=== PATIENT | female | born 1985 | race African-American/Black ===

== ENCOUNTER 2017-11-10 10:15 | Inpatient (IN) | payer MEDICAID ==
[~2017-11-10] VITALS: Ht 162.6 cm; Wt 76.7 kg
[2017-11-10] MEDS ORDERED: NKM (10:27)
[2017-11-10] MEDS ORDERED: Morphine Sulfate 4mg/ml Inj (IV USE ONLY) IVP ONE ×3 (10:45→15:15)
[2017-11-10] MEDS ORDERED: Isovue-300 100ml vial INJ PRN (10:45)
[2017-11-10 11:14] LABS: HEMATOCRIT 42.9 % (37.0-47.0); HEMOGLOBIN 14.1 G/DL (12.0-16.0); MEAN CORPUSCULAR VOLUME 87 FL (80-99); RED BLOOD COUNT 4.95 M/UL (4.20-5.40); RED CELL DISTRIBUTION WIDTH 11.6 % (11.6-14.8); WHITE BLOOD COUNT 7.5 K/UL (4.8-10.8)
[2017-11-10 11:21] LABS: APPEARANCE,URINE CLEAR; BILIRUBIN, URINE NEGATIVE (NEGATIVE); GLUCOSE, URINE (UA) NEGATIVE (NEGATIVE); KETONES,URINE NEGATIVE (NEGATIVE); UROBILINOGEN,URINE 1 MG/DL (0.0-1.0)
[2017-11-10 11:23] LABS: LEUKOCYTE ESTERASE ,URINE 3+ (NEGATIVE); NITRITE,URINE NEGATIVE (NEGATIVE); PH,URINE 6 (4.5-8.0); PROTEIN,URINE 2+ (NEGATIVE)
[2017-11-10 11:26] LABS: ANION GAP 12 mmol/L (5-15); BLOOD UREA NITROGEN 12 mg/dL (7-18); CALCIUM 9.3 MG/DL (8.5-10.1); CARBON DIOXIDE 27 MMOL/L (21-32); CHLORIDE 102 MMOL/L (98-107); CREATININE 0.9 MG/DL (0.55-1.30); POTASSIUM 3.6 MMOL/L (3.5-5.1); SODIUM 141 MMOL/L (136-145)
[2017-11-10 11:30] LABS: ALANINE AMINOTRANSFERASE 37 U/L (12-78); ALBUMIN 3.9 G/DL (3.4-5.0); ALBUMIN/GLOBULIN RATIO 0.8 (1.0-2.7); ALKALINE PHOSPHATASE 90 U/L (46-116); ASPARTATE AMINO TRANSFERASE 20 U/L (15-37); BILIRUBIN,TOTAL 0.5 MG/DL (0.2-1.0)
[2017-11-10 11:38] LABS: COLOR,URINE YELLOW
[2017-11-10 11:51] LABS: PLATELET COUNT 291 K/UL (150-450)
[2017-11-10 12:00] VITALS: BP 128/82
--- NOTE | 2017-11-10 12:12 | Diagnostic Imaging Report ---
Indication: Right lower quadrant abdominal pain Technique: Spiral acquisitions obtained through the abdomen and pelvis. No oral contrast utilized, per emergency room physician request No IV contrast utilized, . History of prior contrast reaction.. Multiplanar reconstructions were generated. Total dose length product 981.21 mGycm. CTDIvol(s) 19.07 mGy. Dose reduction achieved using automated exposure control Comparison: None Findings: Lack of enteric contrast limits assessment of the GI tract. Normal appendix. No evidence of diverticulosis or diverticulitis. No small bowel distention. No free or loculated intraperitoneal gas or fluid. Lack of IV contrast limits assessment of the solid organs. The liver is mildly enlarged. It is slightly decrease in attenuation. No gross focal abnormality. The gallbladder is surgically absent. There is no biliary ductal dilatation. The spleen, pancreas, adrenals, kidneys are grossly unremarkable. No retroperitoneal or mesenteric mass or adenopathy. No pelvic mass or adenopathy. The uterus is absent, presumably postsurgically. The included lung bases are clear. The bones are unremarkable. Impression: Limited assessment of the GI tract, due to lack of enteric contrast. No gross acute abnormality Mild hepatomegaly. Decreased hepatic attenuation is consistent with fatty infiltration Surgically absent gallbladder and uterus The CT scanner at [facility] is accredited by the [employer] and the scans are performed using protocols designed to limit radiation exposure to as low as reasonably achievable to attain images of sufficient resolution adequate for diagnostic evaluation.
[2017-11-10] MEDS ORDERED: Solu-MEDROL 125mg Inj IVP ONE (13:30)
[2017-11-10] MEDS ORDERED: DiphenhydrAMINE 50mg/ml Inj IVP ONE (13:30)
[2017-11-10 14:00] VITALS: BP 129/80
--- NOTE | 2017-11-10 14:21 | Diagnostic Imaging Report ---
Indication: Right-sided pelvic pain. Negative test Technique: Transabdominal and transvaginal images. Endovaginal portion exam is somewhat limited, due to history of allergy to lubricating jelly. Comparison: CT scan of earlier the same day Findings: Uterus is not visualized, presumably surgically absent as not visualized on recent CT scan. The left ovary is surgically absent. The right ovary cannot be visualized. No pelvic mass or fluid collection. Impression: No pelvic viscera visualized. Most likely postsurgical. Negative for evidence of pelvic mass or abnormal fluid collection
--- NOTE | 2017-11-10 14:32 | Emergency Room Report ---
History of Present Illness General Chief Complaint: Abdominal Pain Source: Patient, Medical Record Present Illness HPI 31-year-old female presents ED complaining of abdominal pain. Started this morning. Localized to right lower quadrant and lower abdomen. Sharp, 10 out of 10, nonradiating. Denies fevers or chills. Denies nausea or vomiting. Denies vaginal bleeding. States that she has history of endometriosis. States that she recently had a recent cholecystectomy done and a D&C performed in August in [facility]. Patient states she recently moved back to this area. Denies chest pain or shortness of breath. No other aggravating relieving factors. Denies any other associated symptoms Allergies: Coded Allergies: AMOXICILLIN (Verified Allergy, Unknown, 11/10/17) IBUPROFEN (Verified Allergy, Unknown, 11/10/17) Patient History Past Medical History: none Past Surgical History: none, ty Pertinent Family History: none Social History: Denies: smoking, alcohol use, drug use Last Menstrual Period: 10/22/17 Now: No Immunizations: UTD Reviewed Nursing Documentation: PMH: Agreed; PSxH: Agreed Nursing Documentation-PMH Past Medical History: No History, Except For Review of Systems All Other Systems: negative except mentioned in HPI Physical Exam Vital Signs Date Time Temp Pulse Resp B/P (MAP) Pulse Ox O2 Delivery O2 Flow Rate FiO2 11/10/17 10:22 98.5 102 18 138/85 100 Room Air 98.4 Sp02 EP Interpretation: reviewed, normal General Appearance: no apparent distress, alert, GCS 15, non-toxic Head: normocephalic, atraumatic Eyes: bilateral eye normal inspection, bilateral eye PERRL ENT: hearing grossly normal, normal pharynx, no angioedema, normal voice Neck: full range of motion, supple/symm/no masses Respiratory: chest non-tender, lungs clear, normal breath sounds, speaking full sentences Cardiovascular #1: regular rate, rhythm, no edema Cardiovascular #2: 2+ carotid (R), 2+ carotid (L), 2+ radial (R), 2+ radial (L) , 2+ dorsalis pedis (R), 2+ dorsalis pedis (L) Gastrointestinal: normal bowel sounds, soft, non-distended, no guarding, no rebound, tenderness - RLQ Rectal: deferred Genitourinary: normal inspection, no CVA tenderness Musculoskeletal: back normal, gait/station normal, normal range of motion, non- tender Neurologic: alert, oriented x3, responsive, motor strength/tone normal, sensory intact, speech normal Psychiatric: judgement/insight normal, memory normal, mood/affect normal, no suicidal/homicidal ideation Reflexes: 3+ bicep (R), 3+ bicep (L), 3+ tricep (R), 3+ tricep (L), 3+ knee (R) , 3+ knee (L) Skin: normal color, no rash, warm/dry, well hydrated Lymphatic: no adenopathy Medical Decision Making Diagnostic Impression: Primary Impression: Allergic reaction Qualified Codes: T78.40XA - Allergy, unspecified, initial encounter Additional Impression: Intractable abdominal pain ER Course Hospital Course 31-year-old female presents ED complaining of lower abdominal pain. History of endometriosis. History of cholecystectomy. History of left ovarian torsion Differential diagnoses include: endometriosis, ovarian torsion, SBO Clinical course Patient placed on stretcher. blood collector. After initial history and physical I ordered labs, IV fluids, UA, pain medication and CT scan, US Labs - no leukocytosis, Hb/Hct stable, electrolytes ok CT abdomen and pelvis - surgically absent uterus. limited secondary to no contrast (patient has contrast allergy) Pelvic US - surgically absent uterus, L ovary gone, R ovary not visualized Patient developed allergic reaction to ultrasound gel. Patient denies any prior allergic reaction to ultrasound gel. Given Benadryl, Solumedrol Discussed findings with the patient. Patient is not aware that she no longer has a uterus. thought that she had a recent D&C performed. Patient continues to have pain. We cannot effectively rule out right ovarian torsion. Patient will be admitted for serial abdominal exams. Annette consulted Case discussed with Dr. Garcia and he agreed to accept the patient to his service for further care and support I feel this is a highly complex case requiring extensive working including EKG/ Rhythm strip, Xray/CT/US, Blood/urine lab work, repeat exams while in ED, and administration of strong opiates/narcotics for pain control, admission to hospital or close patient follow up. Diagnosis - allergic reaction, intractable abdominal pain Patient admitted to floor in serious condition Labs Test 11/10/17 10:45 White Blood Count 7.5 K/UL (4.8-10.8) Red Blood Count 4.95 M/UL (4.20-5.40) Hemoglobin 14.1 G/DL (12.0-16.0) Hematocrit 42.9 % (37.0-47.0) Mean Corpuscular Volume 87 FL (80-99) Mean Corpuscular Hemoglobin 28.6 PG (27.0-31.0) Mean Corpuscular Hemoglobin Concent 33.0 G/DL (32.0-36.0) Red Cell Distribution Width 11.6 % (11.6-14.8) Platelet Count 291 K/UL (150-450) Mean Platelet Volume 13.4 FL (6.5-10.1) Neutrophils (%) (Auto) % (45.0-75.0) Lymphocytes (%) (Auto) % (20.0-45.0) Monocytes (%) (Auto) % (1.0-10.0) Eosinophils (%) (Auto) % (0.0-3.0) Basophils (%) (Auto) % (0.0-2.0) Differential Total Cells Counted 100 Neutrophils % (Manual) 48 % (45-75) Lymphocytes % (Manual) 42 % (20-45) Monocytes % (Manual) 8 % (1-10) Eosinophils % (Manual) 1 % (0-3) Basophils % (Manual) 1 % (0-2) Band Neutrophils 0 % (0-8) Platelet Estimate Adequate Platelet Morphology Normal Red Blood Cell Morphology Normal Urine Color Yellow Urine Appearance Clear Urine pH 6 (4.5-8.0) Urine Specific [place] 1.020 (1.005-1.035) Urine Protein 2+ (NEGATIVE) Urine Glucose (UA) Negative (NEGATIVE) Urine Ketones Negative (NEGATIVE) Urine Blood 2+ (NEGATIVE) Urine Nitrite Negative (NEGATIVE) Urine Bilirubin Negative (NEGATIVE) Urine Urobilinogen 1 MG/DL (0.0-1.0) Urine Leukocyte Esterase 3+ (NEGATIVE) Urine RBC 0-2 /HPF (0 - 2) Urine WBC 2-4 /HPF (0 - 2) Urine Squamous Epithelial Cells Few /LPF (NONE/OCC) Urine Bacteria Few /HPF (NONE) Urine HCG, Qualitative Negative (NEGATIVE) Sodium Level 141 MMOL/L (136-145) Potassium Level 3.6 MMOL/L (3.5-5.1) Chloride Level 102 MMOL/L (98-107) Carbon Dioxide Level 27 MMOL/L (21-32) Anion Gap 12 mmol/L (5-15) Blood Urea Nitrogen 12 mg/dL (7-18) Creatinine 0.9 MG/DL (0.55-1.30) Estimat Glomerular Filtration Rate > 60 mL/min (>60) Glucose Level 108 MG/DL (74-106) Calcium Level 9.3 MG/DL (8.5-10.1) Total Bilirubin 0.5 MG/DL (0.2-1.0) Aspartate Amino Transf (AST/SGOT) 20 U/L (15-37) Alanine Aminotransferase (ALT/SGPT) 37 U/L (12-78) Alkaline Phosphatase 90 U/L (46-116) Total Protein 8.5 G/DL (6.4-8.2) Albumin 3.9 G/DL (3.4-5.0) Globulin 4.6 g/dL Albumin/Globulin Ratio 0.8 (1.0-2.7) Lipase 136 U/L (73-393) CT/MRI/US Diagnostic Results CT/MRI/US Diagnostic Results #1: Imaging Test Ordered: Pelvic US Impression no uterus. L ovary surgically removed. R ovary not visualized CT/MRI/US Diagnostic Results #2: Imaging Test Ordered: CT A/P Impression surgically absent uterus. Last Vital Signs Date Time Temp Pulse Resp B/P (MAP) Pulse Ox O2 Delivery O2 Flow Rate FiO2 11/10/17 12:01 98.5 11/10/17 12:00 76 18 128/82 100 Room Air Status: improved Disposition: ADMITTED INPATIENT Condition: Serious Referrals: NOT APPLICABLE THIS PATIENT,RE (PCP) Nnamdi Morton MD Nov 10, 2017 14:32
[2017-11-10 16:00] VITALS: BP 119/77
[2017-11-10] MEDS ORDERED: LORazepam 1mg tab ORAL PRN (17:15)
[2017-11-10] MEDS: NS w/KCl 20mEq 1,000 ML IV SCH (18:29)
[2017-11-10] MEDS: Morphine Sulfate 2mg/ml Inj(IV/IM USE ONLY) IVP PRN ×2 (18:36→22:34)
[2017-11-10 20:00] VITALS: BP 130/74
--- NOTE | 2017-11-10 21:26 | Consultation ---
History of Present Illness General Date patient seen: Nov 10, 2017 Chief Complaint: Abdominal Pain Reason for Consultation: abdominal pain Present Illness HPI late entry for patient seen in ED 31 year old female with history of two prior live births and 3 prior d+c, lap ty, ovarian torsion left, endometriosis presented to ED with complaints of abdominal pain. states pain began 1 day ago and 10/10 lower abdominal cramping sharp pain. no n/v/f/c. pain did not improve so came to ED for evaluation. in ED had normal labs, possible UTI, CT/US findings as below. pain not improving so admitted for monitoring. surgery called to evaluate for abdominal pain. patient seen, chart reviewed, patient examined. states had uterus and left ovary removed prior. has been wanting to have her right ovary removed but has not found a surgeon to do it yet. last d+C in [facility] two weeks ago Allergies: Coded Allergies: AMOXICILLIN (Verified Allergy, Unknown, 11/10/17) IBUPROFEN (Verified Allergy, Unknown, 11/10/17) LUBRICANT (Verified Allergy, Unknown, Itching, 11/10/17) E-Z LUBRICATING GEL BY MEDLINE Medication History Scheduled No Known Medications* (NKM - No Known Medications*), 0 ., (Reported) Patient History History Provided By: Patient, Medical Record, PMD Healthcare decision maker Resuscitation status Full Code Advanced Directive on File No Past Medical/Surgical History Past Medical/Surgical History: (1) Allergic reaction (2) Intractable abdominal pain Review of Systems All Other Systems: negative except mentioned in HPI Physical Exam General Appearance: no apparent distress Lines, tubes and drains: peripheral HEENT: normocephalic Neck: normal inspection Respiratory/Chest: lungs clear, normal breath sounds, no respiratory distress, no accessory muscle use Cardiovascular/Chest: normal peripheral pulses, normal rate Abdomen: normal bowel sounds, soft, no organomegaly, no mass, tender, other - no rebound or guarding Extremities: normal inspection Skin Exam: warm/dry Neurologic: alert, oriented x 3 Last 24 Hour Vital Signs Date Time Temp Pulse Resp B/P (MAP) Pulse Ox O2 Delivery O2 Flow Rate FiO2 11/10/17 20:00 98.0 96 18 130/74 (92) 96 98.0 11/10/17 19:06 98.2 11/10/17 18:36 98.2 11/10/17 16:06 Room Air 11/10/17 16:00 98.2 85 21 119/77 (91) 98.2 11/10/17 15:45 Room Air 11/10/17 15:30 98.5 76 20 129/80 99 Room Air 209.3 11/10/17 15:18 98.5 11/10/17 14:00 76 20 129/80 99 Room Air 11/10/17 12:01 98.5 11/10/17 12:00 98.5 76 18 128/82 100 Room Air 98.5 11/10/17 11:26 98.5 11/10/17 11:26 98.5 11/10/17 10:56 98.5 11/10/17 10:22 98.5 102 18 138/85 100 Room Air 98.4 Laboratory Tests Test 11/10/17 10:45 White Blood Count 7.5 K/UL (4.8-10.8) Red Blood Count 4.95 M/UL (4.20-5.40) Hemoglobin 14.1 G/DL (12.0-16.0) Hematocrit 42.9 % (37.0-47.0) Mean Corpuscular Volume 87 FL (80-99) Mean Corpuscular Hemoglobin 28.6 PG (27.0-31.0) Mean Corpuscular Hemoglobin Concent 33.0 G/DL (32.0-36.0) Red Cell Distribution Width 11.6 % (11.6-14.8) Platelet Count 291 K/UL (150-450) Mean Platelet Volume 13.4 FL (6.5-10.1) H Neutrophils (%) (Auto) % (45.0-75.0) Lymphocytes (%) (Auto) % (20.0-45.0) Monocytes (%) (Auto) % (1.0-10.0) Eosinophils (%) (Auto) % (0.0-3.0) Basophils (%) (Auto) % (0.0-2.0) Differential Total Cells Counted 100 Neutrophils % (Manual) 48 % (45-75) Lymphocytes % (Manual) 42 % (20-45) Monocytes % (Manual) 8 % (1-10) Eosinophils % (Manual) 1 % (0-3) Basophils % (Manual) 1 % (0-2) Band Neutrophils 0 % (0-8) Platelet Estimate Adequate Platelet Morphology Normal Red Blood Cell Morphology Normal Urine Color Yellow Urine Appearance Clear Urine pH 6 (4.5-8.0) Urine Specific [place] 1.020 (1.005-1.035) Urine Protein 2+ (NEGATIVE) H Urine Glucose (UA) Negative (NEGATIVE) Urine Ketones Negative (NEGATIVE) Urine Blood 2+ (NEGATIVE) H Urine Nitrite Negative (NEGATIVE) Urine Bilirubin Negative (NEGATIVE) Urine Urobilinogen 1 MG/DL (0.0-1.0) H Urine Leukocyte Esterase 3+ (NEGATIVE) H Urine RBC 0-2 /HPF (0 - 2) Urine WBC 2-4 /HPF (0 - 2) Urine Squamous Epithelial Cells Few /LPF (NONE/OCC) Urine Bacteria Few /HPF (NONE) Urine HCG, Qualitative Negative (NEGATIVE) Sodium Level 141 MMOL/L (136-145) Potassium Level 3.6 MMOL/L (3.5-5.1) Chloride Level 102 MMOL/L (98-107) Carbon Dioxide Level 27 MMOL/L (21-32) Anion Gap 12 mmol/L (5-15) Blood Urea Nitrogen 12 mg/dL (7-18) Creatinine 0.9 MG/DL (0.55-1.30) Estimat Glomerular Filtration Rate > 60 mL/min (>60) Glucose Level 108 MG/DL (74-106) H Calcium Level 9.3 MG/DL (8.5-10.1) Total Bilirubin 0.5 MG/DL (0.2-1.0) Aspartate Amino Transf (AST/SGOT) 20 U/L (15-37) Alanine Aminotransferase (ALT/SGPT) 37 U/L (12-78) Alkaline Phosphatase 90 U/L (46-116) Total Protein 8.5 G/DL (6.4-8.2) H Albumin 3.9 G/DL (3.4-5.0) Globulin 4.6 g/dL Albumin/Globulin Ratio 0.8 (1.0-2.7) L Lipase 136 U/L (73-393) Height (Feet): 5 Height (Inches): 4.00 Weight (Pounds): 169 Medications Current Medications Medications (Trade) Dose Ordered Sig/Reyes Route PRN Reason Start Time Stop Time Status Last Admin Dose Admin Heparin Sodium (Porcine) (Heparin 5000 units/ml) 5,000 units EVERY 12 HOURS SUBQ 11/11/17 09:00 12/11/17 08:59 Iopamidol (Isovue-300 100ml) 100 ml NOW PRN INJ Radiology Procedure 11/10/17 10:45 Lorazepam (Ativan) 1 mg QHS PRN ORAL For Anxiety 11/10/17 17:15 11/17/17 17:14 Morphine Sulfate (Morphine Sulfate) 2 mg Q4H PRN IVP Severe Pain (Pain Scale 7-10) 11/10/17 16:45 11/17/17 16:44 11/10/17 18:36 Ondansetron HCl (Zofran) 4 mg Q4H PRN IVP Nausea & Vomiting 11/10/17 16:45 12/10/17 16:44 Pantoprazole (Protonix) 40 mg DAILY IVP 11/11/17 09:00 12/11/17 08:59 Sodium Chloride 1,000 ml @ 125 mls/hr Q8H IV 11/10/17 18:30 12/10/17 18:29 11/10/17 18:29 Assessment/Plan Problem List: (1) Intractable abdominal pain Assessment & Plan: afebrile, HD stable, labs okay possible UTI CT and US unremarkable exam with lower pelvic discomfort but no acute abdomen. -no acute surgical intervention necessary will admit for serial exams and monitoring okay for diet fluids thank you. will follow with recs. ICD Codes: R10.9 - Unspecified abdominal pain SNOMED: [id number], [id number] Status: stable Jesus Bryant Nov 10, 2017 21:26
[2017-11-10] MEDS ORDERED: Docusate 100mg cap ORAL PRN (21:30)
[2017-11-11] VITALS: BP 108/67
--- NOTE | 2017-11-11 01:01 | History and Physical Report ---
DATE OF ADMISSION: 11/10/2017 REASON FOR ADMISSION: Abdominal pain. HISTORY OF PRESENT ILLNESS: This 31-year-old female has a history of left ovarian torsion, endometriosis and prior partial hysterectomy with left oophorectomy. She presented to the emergency room with right-sided lower abdominal pain. She describes a similar to that when she had her previous ovarian torsion. She has no nausea, vomiting, diarrhea, fevers or chills. She is 7 para 3 A 4. The patient had her last period on 10/22/2017. She missed her period in September. PAST MEDICAL HISTORY: Otherwise unremarkable. MEDICATIONS: Reviewed and reconciled. ALLERGIES: As listed in medical record. SOCIAL HISTORY: Denies smoking, alcohol, or substance abuse. REVIEW OF SYSTEMS: Otherwise, unremarkable. PHYSICAL EXAMINATION: VITAL SIGNS: Blood pressure 112/60, pulse 84, respirations 18 and afebrile. HEENT: Oropharynx clear. NECK: Supple. No bruits. Jugular venous distention. LUNGS: Clear. CARDIAC: Regular. No murmur. ABDOMEN: Soft. There is mild tenderness in the right lower quadrant with no guarding or rebound. EXTREMITIES: Revealed no edema. LABORATORY AND DIAGNOSTIC DATA: Imaging studies were difficult to obtain due to latex allergy and contrast mediated allergies. IMPRESSION: Abdominal pain, suggestive of ovarian torsion, although other pathology certainly could not be excluded. At this time, she is hemodynamically stable with normal laboratory studies. No signs of metabolic derangements or infection. PLAN: Hydration. Pain control. Clear liquid diet. Surgical consultation with possible RN PSYCH evaluation to follow. Imaging studies will be required with prophylactic antihistamines and steroids. Augie Garcia M.D. DR: TOMAS JOB#: [id number] CC:
[2017-11-11] MEDS: NS w/KCl 20mEq 1,000 ML IV SCH ×2 (02:56→08:41)
[2017-11-11] MEDS: Morphine Sulfate 2mg/ml Inj(IV/IM USE ONLY) IVP PRN ×3 (02:56→12:46)
[2017-11-11 07:46] LABS: ALANINE AMINOTRANSFERASE 31 U/L (12-78); ALBUMIN 3.1 G/DL (3.4-5.0); ALBUMIN/GLOBULIN RATIO 0.8 (1.0-2.7); ALKALINE PHOSPHATASE 78 U/L (46-116); ANION GAP 10 mmol/L (5-15); ASPARTATE AMINO TRANSFERASE 17 U/L (15-37); BILIRUBIN,TOTAL 0.2 MG/DL (0.2-1.0); BLOOD UREA NITROGEN 12 mg/dL (7-18); CALCIUM 8.5 MG/DL (8.5-10.1); CARBON DIOXIDE 25 MMOL/L (21-32); CHLORIDE 106 MMOL/L (98-107); CREATININE 0.9 MG/DL (0.55-1.30); POTASSIUM 3.9 MMOL/L (3.5-5.1); SODIUM 141 MMOL/L (136-145)
[2017-11-11 08:00] VITALS: BP 148/98
[2017-11-11] MEDS ORDERED: Pantoprazole Inj IVP SCH (09:00)
[2017-11-11] MEDS ORDERED: Heparin 5000 units/ml inj SUBQ SCH (09:00)
[2017-11-11 09:39] LABS: BILIRUBIN, URINE NEGATIVE (NEGATIVE); COLOR,URINE PALE YELLOW; GLUCOSE, URINE (UA) NEGATIVE (NEGATIVE); KETONES,URINE NEGATIVE (NEGATIVE); LEUKOCYTE ESTERASE ,URINE 2+ (NEGATIVE); NITRITE,URINE NEGATIVE (NEGATIVE); PH,URINE 6.5 (4.5-8.0); PROTEIN,URINE NEGATIVE (NEGATIVE); UROBILINOGEN,URINE NORMAL MG/DL (0.0-1.0)
[2017-11-11 09:46] LABS: APPEARANCE,URINE SLIGHTLY CLOUDY
[2017-11-11 10:01] LABS: BASOPHILS % (AUTO) 0.8 % (0.0-2.0); EOSINOPHILS % (AUTO) 0.1 % (0.0-3.0); HEMATOCRIT 39.1 % (37.0-47.0); LYMPHOCYTES % (AUTO) 31.1 % (20.0-45.0); MEAN CORPUSCULAR VOLUME 87 FL (80-99); MONOCYTES % (AUTO) 10.8 % (1.0-10.0); NEUTROPHILS % (AUTO) 57.3 % (45.0-75.0); RED CELL DISTRIBUTION WIDTH 11.5 % (11.6-14.8); WHITE BLOOD COUNT 10.6 K/UL (4.8-10.8)
[2017-11-11 11:02] LABS: PLATELET COUNT 177 K/UL (150-450)
[2017-11-11 12:00] VITALS: BP 118/64
--- NOTE | 2017-11-11 13:11 | General Surgery Progress Note ---
General Surgery-Progress Note Subjective Symptoms: improved, tolerating diet, passing flatus, BM Additional Comments states still having pain in lower abdomen. now states has been having this intermittently for month. currently tolerating diet. ambulatory. seems comfortable. no n/v/f/c. exam benign but does complain of right lower pelvic discomfort. no rebound, no guarding. 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 Objective Last 24 Hour Vital Signs Date Time Temp Pulse Resp B/P (MAP) Pulse Ox O2 Delivery O2 Flow Rate FiO2 11/11/17 12:00 97.7 85 22 118/64 (82) 99 97.7 11/11/17 08:00 Room Air 11/11/17 08:00 98.1 92 18 148/98 (115) 97 98.1 11/11/17 00:00 97.9 94 18 108/67 (81) 96 97.9 11/10/17 21:00 Room Air 11/10/17 20:00 98.0 96 18 130/74 (92) 96 98.0 11/10/17 19:06 98.2 11/10/17 18:36 98.2 11/10/17 16:06 Room Air 11/10/17 16:00 98.2 85 21 119/77 (91) 98.2 11/10/17 15:45 Room Air 11/10/17 15:30 98.5 76 20 129/80 99 Room Air 209.3 11/10/17 15:18 98.5 11/10/17 14:00 76 20 129/80 99 Room Air I&O Intake and Output 11/10/17 11/11/17 19:00 07:00 Intake Total 240 ml 900 ml Balance 240 ml 900 ml Intake Oral 240 ml 400 ml IV Total 500 ml # Voids 6 # Bowel Movements 1 Drains: none Cardiovascular: RSR Respiratory: clear Abdomen: soft, flat, tenderness, present bowel sounds Extremities: no edema, no tenderness, no cyanosis Laboratory Tests Test 11/11/17 06:35 11/11/17 08:57 11/11/17 09:45 Sodium Level 141 MMOL/L (136-145) Potassium Level 3.9 MMOL/L (3.5-5.1) Chloride Level 106 MMOL/L (98-107) Carbon Dioxide Level 25 MMOL/L (21-32) Anion Gap 10 mmol/L (5-15) Blood Urea Nitrogen 12 mg/dL (7-18) Creatinine 0.9 MG/DL (0.55-1.30) Estimat Glomerular Filtration Rate > 60 mL/min (>60) Glucose Level 135 MG/DL (74-106) H Calcium Level 8.5 MG/DL (8.5-10.1) Total Bilirubin 0.2 MG/DL (0.2-1.0) Aspartate Amino Transf (AST/SGOT) 17 U/L (15-37) Alanine Aminotransferase (ALT/SGPT) 31 U/L (12-78) Alkaline Phosphatase 78 U/L (46-116) Total Protein 7.1 G/DL (6.4-8.2) Albumin 3.1 G/DL (3.4-5.0) L Globulin 4.0 g/dL Albumin/Globulin Ratio 0.8 (1.0-2.7) L Urine Color Pale yellow Urine Appearance Slightly cloudy Urine pH 6.5 (4.5-8.0) Urine Specific [place] 1.010 (1.005-1.035) Urine Protein Negative (NEGATIVE) Urine Glucose (UA) Negative (NEGATIVE) Urine Ketones Negative (NEGATIVE) Urine Blood 1+ (NEGATIVE) H Urine Nitrite Negative (NEGATIVE) Urine Bilirubin Negative (NEGATIVE) Urine Urobilinogen Normal MG/DL (0.0-1.0) Urine Leukocyte Esterase 2+ (NEGATIVE) H Urine RBC 0-2 /HPF (0 - 2) Urine WBC 2-4 /HPF (0 - 2) Urine Squamous Epithelial Cells Occasional /LPF Urine Bacteria Occasional /HPF (NONE) White Blood Count 10.6 K/UL (4.8-10.8) Red Blood Count 4.50 M/UL (4.20-5.40) Hemoglobin 13.0 G/DL (12.0-16.0) Hematocrit 39.1 % (37.0-47.0) Mean Corpuscular Volume 87 FL (80-99) Mean Corpuscular Hemoglobin 28.9 PG (27.0-31.0) Mean Corpuscular Hemoglobin Concent 33.3 G/DL (32.0-36.0) Red Cell Distribution Width 11.5 % (11.6-14.8) L Platelet Count 177 K/UL (150-450) Mean Platelet Volume 10.0 FL (6.5-10.1) Neutrophils (%) (Auto) 57.3 % (45.0-75.0) Lymphocytes (%) (Auto) 31.1 % (20.0-45.0) Monocytes (%) (Auto) 10.8 % (1.0-10.0) H Eosinophils (%) (Auto) 0.1 % (0.0-3.0) Basophils (%) (Auto) 0.8 % (0.0-2.0) Differential Total Cells Counted 100 Neutrophils % (Manual) 56 % (45-75) Lymphocytes % (Manual) 36 % (20-45) Monocytes % (Manual) 8 % (1-10) Eosinophils % (Manual) 0 % (0-3) Basophils % (Manual) 0 % (0-2) Band Neutrophils 0 % (0-8) Platelet Estimate Adequate Platelet Morphology See comment Clumped Platelets 3+ Red Blood Cell Morphology Normal Plan Problems: (1) Intractable abdominal pain Assessment & Plan: afebrile, HD stable, labs okay possible UTI CT and US unremarkable exam with lower pelvic discomfort but no acute abdomen. -no acute surgical intervention necessary tolerating diet ambulatory pain intermittent and stable. has had for over a month now. had work up as outpatient in [facility] but recently moved here and has not followed up with work up okay to d/c home. needs to establish with PCP and OB as outpatient teodoro for follow up and continue workup for this pain. no acute intervention necessary at this time thank you Jesus Bryant Nov 11, 2017 13:11
--- NOTE | 2017-11-12 10:19 | Discharge Summary ---
Discharge Summary Discharge Summary _ DATE OF ADMISSION: 11/10/2017 DATE OF DISCHARGE: 11/11/2017 CONSULTANTS: Dr. Jesus Bryatn BRIEF HOSPITAL COURSE: Patient is a 31-year-old -[place] female, who has a history of left ovarian torsion, endometriosis and prior partial hysterectomy with left oophorectomy. She presented to the emergency room with right-sided lower abdominal pain described to be similar to that when she had her previous overaction torsion. She had no nausea, no vomiting, no diarrhea, fever or chills. She is A4. Last menstrual period was on 10/22/2017. She missed her period in September. On evaluation at ED, vital signs were stable. Blood work was stable. CT of the abdomen and pelvis showed a surgically absent uterus and gallbladder, although limited exam due to lack of enteric contrast. Pelvic ultrasound showed surgically absent uterus and left ovary, right ovary was not visualized. She continued to have pain. She was admitted for evaluation of abdominal pain which was suggestive of ovarian torsion. She was given IV hydration and pain control. She was placed on clear liquid diet. Surgical consultation was obtained. She was seen by a surgeon. Examination showed lower pelvic discomfort but no acute abdomen. There was no acute surgical intervention necessary. She was started on diet and was given Protonix. Diet was advanced and she was tolerating diet. There was no nausea, vomiting, fever or chills. Abdominal examination still benign, no rebound no guarding. She was eventually cleared for discharged home to follow-up as outpatient. FINAL DIAGNOSES: abdominal pain suggestive of ovarian torsion DISPOSITION: Patient was discharged home. DISCHARGE INSTRUCTIONS: Follow up with PCP in a week. I have been assigned to dictate discharge summary on this account, and I was not involved in the patient's management. Tricia Heredia NP Nov 12, 2017 10:18
== END 2017-11-11 15:07 | disposition home or self-care (01) | DRG 251 ==
LOC: EMR 10:47 → 4E 14:13 → EDBEDREQ 14:24
DX: R10.32 Left lower quadrant pain (principal); N83.511 Torsion of right ovary and ovarian pedicle; Z88.1 Allergy status to other antibiotic agents; Z90.710 Acquired absence of both cervix and uterus; Z90.721 Acquired absence of ovaries, unilateral; Z88.6 Allergy status to analgesic agent; Z88.8 Allergy status to other drugs, medicaments and biological substances
CPT/HCPCS: 36415; 74176; 76830; 76856; 80053; 81003; 81025; 83690; 85007; 85025; 96374; 96375; 96376; 99285; J2405